=== PATIENT | female | born 1985 | race Caucasian/White ===

== ENCOUNTER 2017-02-04 23:20 | Observation (INO) | payer BC ==
[~2017-02-04] VITALS: Ht 157.5 cm; Wt 83.0 kg
--- NOTE | 2017-02-18 13:19 | PROGRESS NOTE ---
DATE OF SERVICE: 02/05/2017 ATTENDING PHYSICIAN/PROVIDER: Gautam Shah MD This was an over 4-hour observation. IMPRESSION: A 39-4/7 weeks' gestation with an estimated date of confinement of 02/08/2017. HISTORY OF PRESENT ILLNESS: Evaluation for threatened labor. The patient was evaluated and appeared to have a reactive NST, normal physical exam and no change in her cervix and was discharged home with warnings, routine followup in the office or p.r.n. labor and delivery for delivery.
== END 2017-02-05 05:00 | disposition home or self-care (01) ==
LOC: OBC SRH 23:20 → OB SRH 23:24 → OBC SRH 23:24 → OB SRH 02-05 04:30 → OBC SRH 02-05 05:00 → OB SRH 02-05 05:00
PROVIDERS: ADMIT Obstetrics & Gynecology
DX: O47.1 False labor at or after 37 completed weeks of gestation (principal); Z3A.39 39 weeks gestation of pregnancy

== ENCOUNTER 2017-02-07 06:53 | Inpatient (IN) | payer BC ==
[2017-02-07] VITALS (8 sets, daily range): BP systolic 123–137; BP diastolic 63–85
[~2017-02-07] VITALS: Ht 157.5 cm; Wt 83.5 kg
[2017-02-08] VITALS: BP 131/85
[2017-02-08 04:30] VITALS: BP 129/77
[2017-02-08 09:15] VITALS: BP 127/74
--- NOTE | 2017-02-08 13:55 | Provider's Discharge Care Plan ---
Problem, Goal, Plan Problem List 1. Vaginal delivery Goals: Improve disease control Instructions: Follow up as needed
--- NOTE | 2017-02-08 13:55 | Provider's Discharge Care Plan ---
Problem, Goal, Plan Problem List 1. Vaginal delivery Goals: Improve disease control Instructions: Follow up as needed
[2017-02-08 16:25] VITALS: BP 130/83
== END 2017-02-08 19:40 | disposition home or self-care (01) | DRG 775 ==
LOC: OB SRH 06:53
PROVIDERS: ADMIT Obstetrics & Gynecology
PROC: 10E0XZZ Delivery of Products of Conception, External Approach (ICD-10-PCS; principal; 2017-02-07)
PROC: 3E033VJ Introduction of Other Hormone into Peripheral Vein, Percutaneous Approach (ICD-10-PCS; 2017-02-07)
DX: O80 Encounter for full-term uncomplicated delivery (principal); Z37.0 Single live birth; Z3A.39 39 weeks gestation of pregnancy
CPT/HCPCS: 40012; 40021; 87025; 87026; 90074; 91162; 91163; 95059